=== PATIENT | male | born 1990 | race Native Hawaiian/Other Pacific Islander ===

== ENCOUNTER 2019-07-09 22:39 | Emergency (ER) | payer SELFPAY ==
[2019-07-09 22:55] VITALS: BP 178/105; PULSE 75; RESP 16; TEMP 36.6; O2SAT 96; BMI 43.0
--- NOTE | 2019-07-09 23:00 | XRR_ITS ---
PROCEDURE INFORMATION: Exam: XR Right Hand Exam date and time: 07/09/2019 11:01 PM Age: 28 years old Clinical indication: Injury or trauma; Fall; Initial encounter; Blunt trauma (contusions or hematomas; Hand and finger; Bilateral; Index finger and middle finger and ring finger; Injury date: 07/07/19; Additional info: Right hand/wrist injury TECHNIQUE: Imaging protocol: XR Right hand. Views: 3 or more views. COMPARISON: No relevant prior studies available. FINDINGS: Bones/joints: Normal. Soft tissues: Normal. XR/XR hand RT min 3V* [id number] IMPRESSION: No acute findings.
--- NOTE | 2019-07-09 23:30 | ED_ITS ---
HPI - Extremity Problem General: Chief complaint: Extremity Injury, Upper Stated complaint: right hand/wrist pain Time Seen by Provider: 07/09/19 23:19 History of Present Illness: HPI Narrative: Patient fell last night at a youth event striking both hands against the baseboard on a wall. Right fingers and right wrist have continued to hurt today with mild swelling. MD Complaint: extremity pain and extremity swelling Onset (ago): day(s) (Last night) Pain Consistency: constant Location: right and upper extremity (Hand) Severity scale (1-10): 5 Quality: aching Relieving factors: cold therapy Associated symptoms: Reports rash (Has eczema); Deny chest pain or fever(s) Review of Systems Const: Denies: fever, chills or body aches Eyes: Denies: change in vision or blurry vision ENMT: Denies: throat pain or nasal congestion Card: Denies: chest pain or shortness of breath on exertion Resp: Denies: shortness of breath, productive cough or non-productive cough GI: Denies: abdominal pain, nausea or vomiting : Denies: difficulty urinating Musc: Denies: extremity pain Skin/Breast: Reports: rash (Has eczema) Neuro: Denies: headache Psych: Denies: anxiety or depression Jus/Lymph: Denies: easy bruising PFSH ED PFSH: Statuses (acute, chronic, etc) shown below reflect problem list status as previously entered and may not be historically accurate Social History Smoking and tobacco status: smoker, details unknown Physical Exam Const: COMMON NORMALS: no apparent distress, average body habitus and oriented x3 HENMT: COMMON NORMALS: normocephalic HEAD & SCALP: normal to inspection and normocephalic FACE & SINUS: normal facial exam Eye: COMMON NORMALS: conjunctivae normal GENERAL EYE: normal appearance of both eyes CONJUNCTIVA: Yes conjunctivae normal Neck/C-Spine: COMMON NORMALS: no JVD Chest: COMMONS NORMALS: inspection of chest normal Resp: COMMON NORMALS: normal respiratory effort and clear to auscultation bilaterally AUSCULTATION: clear to auscultation bilaterally Cardio: COMMON NORMALS: no JVD, regular rate and regular rhythm RATE: regular rate RHYTHM: regular rhythm GI: COMMON NORMALS: normal to inspection, nondistended, normoactive bowel sounds Extremity: COMMON NORMALS: normal to inspection and full ROM RIGHT UPPER EXTREMITY: Yes hand & digits (Tenderness to middle and ring finger. Mild swelling tenderness to the wrist. Bilateral are ulnar and radial) Neuro: COMMON NORMALS: oriented x3 Course Vital Signs: Vital signs: Vital Signs Temperature 97.8 F 07/09/19 22:55 Pulse Rate 75 07/09/19 22:55 Respiratory Rate 16 07/09/19 22:55 Blood Pressure 178/105 07/09/19 22:55 Pulse Oximetry 96 07/09/19 22:55 MDM - Extremity (Nontraumatic) Imaging Data^: Xray Ortho: My impression: Right proximal phalange #3 finger, with distal aspect fracture fragment Discharge Plan Discharge Prescriptions: No Action No Known Home Medications RF: 0 Coding Level of Care Code ED Statement Request Clerk for Abbi Bergeron Exam Problem Focused
[2019-07-10 00:12] VITALS: PULSE 83; O2SAT 98
--- NOTE | 2019-07-11 14:48 | DCPLANNER ---
manager non profit had message to schedule a follow up appointment for patient with ortho. manager non profit called the ortho clinic, spoke with Pat, gave clinic patients information. manager non profit was told that patients information would be printed and reviewed. Clinic will call complex case manager and patient with appointment information.
--- NOTE | 2019-07-13 14:16 | DCPLANNER ---
Jenna from ortho called correctional casework specialist and informed correctional casework specialist that patient is follow up with primary care physician. manager ems was told that if patient is still having pain in a couple of weeks, than patient can call the ortho clinic and schedule an appointment.
== END 2019-07-10 00:13 | disposition home or self-care (01) ==
PROVIDERS: Emergency Provider Nurse Practitioner Family; PCP Family Medicine
DX: M79.641 Pain in right hand (principal)
CPT/HCPCS: 73130; 99281

== ENCOUNTER 2019-10-17 22:09 | Emergency (ER) | payer SELFPAY ==
[2019-10-17 22:21] VITALS: BP 146/92; PULSE 90; RESP 20; TEMP 36.8; O2SAT 97; BMI 43.6
[2019-10-17 23:43] LABS: Basophils # 0.1 10^3/uL (0.0-0.1); Eosinophils # 0.5 10^3/uL (0.0-0.8); Eosinophils % 5.1 %; Hematocrit 48.9 % (42.0-52.0); Hemoglobin 15.7 g/dL (11.7-16.6); Lymphocytes # 3.9 10^3/uL (0.8-4.8); Lymphocytes % 40.3 %; Mean Corpuscular HGB Conc 32.1 g/dL (30.0-36.0); Mean Corpuscular Hemoglobin 28.2 pg (28.0-34.0); Mean Corpuscular Volume 87.9 fL (80-94); Mean Platelet Volume 9.3 fL (7.4-10.4); Monocytes # 1.1 10^3/uL (0.2-0.9); Monocytes % 10.8 %; Neutrophils # 4.2 10^3/uL (1.8-7.7); Neutrophils % 42.5 %; Nucleated Red Blood Cells % 0 %; Platelet Count 374 10^3/cmm (130-400); Red Blood Count 5.56 10^6/uL (4.1-5.3); Red Cell Distribution Width 13.3 % (12.1-15.1); White Blood Count 9.8 10^3/uL (4.0-10.0)
[2019-10-17 23:57] LABS: Alanine Aminotransferase 60 U/L (0-41); Albumin Level 4.6 g/dL (3.5-5.2); Alkaline Phosphatase 89 IU/L (40-130); Anion Gap 16.1 (5-19); Aspartate Amino Transferase 25 U/L (0-40); Blood Urea Nitrogen 12 mg/dL (6-20); Carbon Dioxide 29 mmol/L (22-29); Chloride 98 mmol/L (98-107); Globulin 3.9 g/dL (1.3-4.6); Glomerular Filtration Rate 71.1 mL/min (90-130); Glucose 81 mg/dL (65-115); Lipase 32 U/L (13-60); Osmolality Calculated 283 mOsm/kg (285-295); Potassium 4.1 mmol/L (3.5-5.1); Sodium 139 mmol/L (136-145); Total Bilirubin 0.3 mg/dL (0.15-1.2); Total Protein 8.5 g/dL (6.6-8.7)
[2019-10-18 00:06] VITALS: BP 150/88; PULSE 77; RESP 14; O2SAT 98
--- NOTE | 2019-10-18 00:07 | ED_ITS ---
HPI - Abdominal Pain General: Chief Complaint: General Medical Stated Complaint: abd pain Time Seen by Provider: 10/17/19 23:20 Source: patient Mode of arrival: ambulatory Limitations: no limitations History of Present Illness: HPI narrative: Patient is a 29-year-old male who presents to ED today with multiple medical complaints. Patient's main complaint is chronic intermittent upper abdominal pains that he states has been present at least a year . He states in August 2017 he was hospitalized at [facility] in [place] and told he had a possible bowel obstruction however at the end of his discharge was told he did not have an obstruction. Patient states he has not found any worsening factors to his pain. He has not tried anything prescription or [id number] for the pain. He denies nausea, vomiting, diarrhea, constipation. Denies urinary symptoms. No fever/chills. He also complains of intermittent episodes of dizziness and lightheadedness again that have been present intermittently for at least a year . Patient has never sought primary care evaluation as he does not have insurance. MD elicited complaint: abdominal pain Pertinent past history: none Onset (ago): month(s) Pain Consistency: constant and intermittent Location: Other (across upper abdomen ) Radiation: none Migration to: no migration Exacerbating factors: nothing Relieving factors: nothing Associated Symptoms: Denies change in bowel habits, change in stool character, chills, coffee ground emesis, constipation, GI cramping, diarrhea, dysuria, fever(s), heartburn, hematochezia, hematuria, nausea, syncope and vomiting Review of Systems Const: Denies: fever, chills, body aches, fatigue or malaise Eyes: Denies: change in vision, blurry vision, photophobia, floaters or seeing flashes ENMT: Denies: throat pain, enlarged tonsils or painful swallowing Card: Reports: lightheadedness; Denies: chest pain, palpitations, irregular heart rhythm, edema, swelling of feet/ankles, syncope, pre-syncope, shortness of breath on exertion, shortness of breath when lying down, leg pain with exertion or bluish discoloration of hands/feet Resp: Denies: shortness of breath, productive cough, non-productive cough, pain on inspiration, change in phlegm color, coughing up blood or chest congestion GI: Reports: abdominal pain; Denies: nausea, vomiting, coffee grounds in vomit, difficulty swallowing, heartburn/indigestion, feeling full early, diarrhea, constipation, cramping, change in bowel habits, painful bowel movements, rectal swelling, change in stool character, blood in stool, white/light colored stool or fatty stool : Denies: flank pain, difficulty urinating, painful urination, urinary frequency, urinary urgency, urinary hesitancy, nighttime urination, urinary incontinence, blood in urine, testicular pain or scrotal swelling Musc: Denies: neck pain, back pain or joint pain Skin/Breast: Denies: rash Neuro: Reports: dizziness; Denies: headache, numbness in extremities, weakness in extremities, changes in sensation, lack of coordination, difficulty walking, frequent falls or vertigo PFSH ED PFSH: Social History Smoking and tobacco status: light tobacco smoker Physical Exam Const: COMMON NORMALS: no apparent distress, oriented x3, no limitations and alert NUTRITIONAL APPEARANCE: obese HENMT: COMMON NORMALS: normocephalic, head/scalp atraumatic, hearing grossly normal bilaterally, external ears normal, EAC's normal, TM's normal bilaterally and oropharynx normal HEAD & SCALP: normocephalic and atraumatic EXTERNAL EAR: Yes external ears normal EXTERNAL AUDITORY CANAL: EAC's normal TYMPANIC MEMBRANE: TM's normal bilaterally Eye: COMMON NORMALS: PERRL and EOMs intact bilaterally GENERAL EYE: normal appearance of both eyes and other (no nystagmus) PUPIL: Yes PERRL Neck/C-Spine: COMMON NORMALS: full ROM, no lymphadenopathy and no meningeal signs Chest: COMMONS NORMALS: inspection of chest normal and palpation of chest normal Resp: COMMON NORMALS: normal respiratory effort and clear to auscultation bilaterally AUSCULTATION: clear to auscultation bilaterally Cardio: COMMON NORMALS: regular rate and regular rhythm RATE: regular rate RHYTHM: regular rhythm GI: COMMON NORMALS: normal to inspection, nondistended, normoactive bowel sounds, soft to palpation, no hepatosplenomegaly and no masses PALPATION: Yes soft, Yes tender Details: LLQ and Yes no hepatosplenomegaly : COMMON NORMALS: Yes no CVA tenderness BLADDER/KIDNEY EXAM: Yes no CVA tenderness Back/Pelvis: COMMON NORMALS: no CVA tenderness, thoracic and lumbar spine normal to inspection, no thoracic nor lumbar tenderness and thoraco-lumbar ROM normal Extremity: COMMON NORMALS: normal to inspection Neuro: COMMON NORMALS: oriented x3 SENSORIUM/ORIENTATION: Yes alert MENINGEAL SIGNS: Yes no meningeal signs Skin: COMMON NORMALS: no rashes or lesions noted GENERAL SKIN EXAM: no rashes or lesions noted Course Vital Signs: Vital signs: Vital Signs Temperature 98.3 F 10/17/19 22:21 Pulse Rate 79 10/18/19 00:42 Respiratory Rate 16 10/18/19 00:42 Blood Pressure 150/111 10/18/19 00:42 Pulse Oximetry 96 10/18/19 00:42 MDM - Abdominal Pain Lab Data: Labs: Lab Results 10/17/19 10/17/19 10/18/19 Range/Units 23:30 23:30 00:15 WBC 9.8 (4.0-10.0) 10^3/ uL RBC 5.56 H (4.1-5.3) 10^6/u L Hgb 15.7 (11.7-16.6) g/dL Hct 48.9 (42.0-52.0) % MCV 87.9 (80-94) fL MCH 28.2 (28.0-34.0) pg MCHC 32.1 (30.0-36.0) g/dL RDW 13.3 (12.1-15.1) % Plt Count 374 (130-400) 10^3/c mm MPV 9.3 (7.4-10.4) fL Neut % (Auto) 42.5 % Lymph % (Auto) 40.3 % [place] % (Auto) 10.8 % Eos % (Auto) 5.1 % Baso % (Auto) 1.0 % Neut # (Auto) 4.2 (1.8-7.7) 10^3/u L Lymph # (Auto) 3.9 (0.8-4.8) 10^3/u L [place] # (Auto) 1.1 H (0.2-0.9) 10^3/u L Eos # (Auto) 0.5 (0.0-0.8) 10^3/u L Baso # (Auto) 0.1 (0.0-0.1) 10^3/u L Nucleated RBC % (a uto) 0 % Nucleated RBCs # 0.0 /100WBC Sodium 139 (136-145) mmol/L Potassium 4.1 (3.5-5.1) mmol/L Chloride 98 (98-107) mmol/L Carbon Dioxide 29 (22-29) mmol/L Anion Gap 16.1 (5-19) BUN 12 (6-20) mg/dL Creatinine 1.2 (0.7-1.2) mg/dL GFR Calculation 71.1 L (90-130) mL/min Glucose 81 (65-115) mg/dL Calculated Osmolal ity 283 L (285-295) mOsm/k g Calcium 10.0 (8.5-10.5) mg/dL Total Bilirubin 0.3 (0.15-1.2) mg/dL AST 25 (0-40) U/L ALT 60 H (0-41) U/L Alkaline Phosphata se 89 (40-130) IU/L Total Protein 8.5 (6.6-8.7) g/dL Albumin 4.6 (3.5-5.2) g/dL Globulin 3.9 (1.3-4.6) g/dL Lipase 32 (13-60) U/L Urine Color Yellow (Yellow) Urine Appearance Clear (CLEAR) Urine pH 6 (5-7) Ur Specific Gravit y 1.015 (1.005-1.030) Urine Protein Neg (Negative) Urine Glucose (UA) Norm (Normal) Urine Ketones Negative (Negative) Urine Blood Neg (Negative) Urine Nitrate Negative (Negative) Urine Bilirubin Neg (NEGATIVE) Urine Urobilinogen Norm (Negative) mg/dL Ur Leukocyte Brittney ase Negative (Negative) Imaging Data ^: CT Abd/Pel: Radiologist's impression: [address] [id number] [address] Scan Report Signed Patient: Antonio Hayes Unit #: [id number] : 1990 Age/Sex: 29 / M ADM Date: 10/17/19 Loc: ER Room/Bed: Attending Dr: Ordering Provider/Ordering MD: Madelyn Lehman Date of Service: 10/18/19 Procedure(s): CT abdomen pelvis w con* [id number] Accession Number(s): [id number] Report Number: [id number] PROCEDURE INFORMATION: Exam: CT Abdomen And Pelvis With Contrast Exam date and time: 10/18/2019 12:17 AM Age: 29 years old Clinical indication: Abdominal pain; Localized; Upper; Prior surgery; Surgery date: 6+ months; Surgery type: Appy TECHNIQUE: Imaging protocol: Computed tomography of the abdomen and pelvis with intravenous contrast. Sagittal and coronal reformatted images were created and reviewed. Radiation optimization: All CT scans at this facility use at least one of these dose optimization techniques: automated exposure control; mA and/or kV adjustment per patient size (includes targeted exams where dose is matched to clinical indication); or iterative reconstruction. Contrast material: OMNI 300; Contrast volume: 95 ml; Contrast route: IV; COMPARISON: No relevant prior studies available. RADIATION DOSE METRICS: Total DLP: 2180.85 mGy-cm FINDINGS: Heart: Visualized portions of the heart are unremarkable. Lungs: Visualized lungs are clear. Pleural space: No pleural effusion. Liver: Diffuse, mildly decreased attenuation in the liver. Findings are consistent with mild fatty infiltration. Gallbladder and bile ducts: The gallbladder is unremarkable. No biliary ductal dilatation. Pancreas: The pancreas is unremarkable. No pancreatic ductal dilatation. Spleen: The spleen is unremarkable. Small splenule in the left upper quadrant. Adrenals: The right and left adrenal glands are unremarkable. Kidneys and ureters: The right and left kidneys are unremarkable. The right and left ureters are unremarkable. Stomach and bowel: Ingested contents in the stomach. No acute abnormality in the small bowel. No acute abnormality in the colon. Appendix: Appendix not definitely visualized (by history the patient has had a prior appendectomy). No inflammatory changes in the pericecal region. Intraperitoneal space: No free intraperitoneal air. No ascites. No loculated fluid collections to suggest an abscess. Vasculature: No evidence for aortic aneurysm or aortic dissection. Hepatic veins, portal veins, splenic vein, and SMV are patent. Lymph nodes: No lymphadenopathy. Bladder: The bladder is incompletely filled, which can limit evaluation. No focal abnormality in the bladder however. Reproductive: Unremarkable as visualized. Bones/joints: Old, mild compression deformities of T10 and T11. Mild kyphosis of the spine at these levels. Mild degenerative changes in the visualized spine. Soft tissues: Small, fat-containing umbilical hernia. No evidence for strangulation. No acute abnormality in the extra-abdominal soft tissues. CT/CT abdomen pelvis w con* [id number] IMPRESSION: 1. No acute abnormality in the abdomen or pelvis. 2. Mild fatty infiltration of the liver. 3. Small, fat-containing umbilical hernia. No evidence for strangulation. 4. Incidental/nonacute findings are listed in the report. Radiation Dose CTDIVOL = (mGy): DLP = 2180.85 (mGy-cm) Dictated By: Yancy Josue MD Signed By: Yancy Josue MD Signed Date/Time: 10/18/1950 DD/ Discharge Plan Discharge Patient Disposition: Home, Self-Care Clinical Impression: Chronic abdominal pain Condition: Stable Prescriptions: No Action biotin RF: 0 melatonin RF: 0 Discharge Orders: Discharge Order (Routine); Ordered 10/18/19 Ordered By: Madelyn Lehman Patient Instructions: Abdominal Pain (ED) Coding Level of Care Code ED Numerical Control Tool Programmer for Chg Fwd Exam Comprehensive
[2019-10-18] MEDS: iohexol 300 mg/mL 100 mL Btl IV (00:23)
[2019-10-18 00:24] LABS: Add Urine Microscopic? NO
[2019-10-18 00:26] LABS: Bilirubin Urine Neg (NEGATIVE); Blood Urine Neg (Negative); Glucose Urine UA Norm (Normal); Ketones Urine Negative (Negative); Leukocyte Esterase Urine Negative (Negative); Nitrate Urine Negative (Negative); Protein Urine Neg (Negative); Specific Gravity, Urine 1.015 (1.005-1.030); Urine Appearance Clear (CLEAR); Urine Color Yellow (Yellow); pH Urine 6 (5-7)
[2019-10-18 00:27] LABS: Urobilinogen Urine Norm (Negative)
--- NOTE | 2019-10-18 00:30 | PC.NURSE ---
patient in CT
[2019-10-18 00:42] VITALS: BP 150/111; PULSE 79; RESP 16; O2SAT 96
[2019-10-18 02:00] VITALS: BP 142/88; PULSE 77; RESP 16; O2SAT 96
--- NOTE | 2019-10-18 14:12 | DCPLANNER ---
manager business operations had message to speak with patient about getting established with a primary care physician. manager business operations called the phone number [phone], unable to speak with patient or leave a voicemail, the phone was a busy signal.
== END 2019-10-18 02:01 | disposition home or self-care (01) ==
PROVIDERS: Emergency Provider Physician Assistant
DX: G89.29 Other chronic pain (principal); R10.9 Unspecified abdominal pain; F17.210 Nicotine dependence, cigarettes, uncomplicated
CPT/HCPCS: 12345; 74177; 80053; 81003; 83690; 85025; 99282; 99283; Q9967

== ENCOUNTER 2020-03-11 21:13 | Emergency (ER) | payer SELFPAY ==
[2020-03-11 21:28] VITALS: BP 160/110; PULSE 88; RESP 18; TEMP 36.6; O2SAT 98; BMI 44.6
--- NOTE | 2020-03-11 21:42 | W.ED.DENTAL ---
HPI - Dental/Oral General: Chief complaint: Dental/Oral Stated complaint: tooth ache Time Seen by Provider: 03/11/20 21:37 History of Present Illness: HPI Narrative: Patient is a 29-year-old male comes to the ED with dental pain. Symptoms started last 24 hours. He also is having some pain on left side of face. Location of dental pain is tooth #15. He rates his pain a 10 he has not called the dentist yet but says he will give them a call on Thursday. Associated symptoms: Denies fever(s) or odynophagia Review of Systems Const: Denies: fever(s), chills or fatigue Eyes: Denies: change in vision or eye discomfort ENMT: Reports: dental pain; Denies: throat pain, odynophagia, nasal discharge or nasal congestion Card: Denies: chest pain, palpitations, edema, swelling of feet/ankles, dyspnea on exertion or orthopnea Resp: Denies: dyspnea, productive cough or non-productive cough GI: Denies: abdominal pain, nausea, vomiting, diarrhea, constipation or hematochezia : Denies: flank pain, difficulty urinating, dysuria or hematuria Musc: Denies: neck pain, back pain or extremity swelling Skin/Breast: Denies: rash or new lesions Neuro: Denies: headache(s), numbness in extremities or weakness in extremities PFSH ED PFSH: Social History Smoking and tobacco status: light tobacco smoker Physical Exam Const: COMMON NORMALS: patient oriented x3 HENMT: COMMON NORMALS: normocephalic HEAD & SCALP: normocephalic MOUTH: Normal oral and palatal mucosa present TEETH & GINGIVA: Yes caries (tooth #15) and Yes gingiva abnormal edematous (around tooth #15) and diffusely erythematous (around tooth #15) THROAT: posterior oropharynx normal and uvula midline Neck/C-Spine: COMMON NORMALS: supple GENERAL: Yes normal visual inspection Resp: COMMON NORMALS: normal respiratory effort, No retractions, No use of accessory muscles and clear to auscultation bilaterally AUSCULTATION: clear to auscultation bilaterally Cardio: COMMON NORMALS: regular rate, regular rhythm, S1 normal heart sound present, S2 normal heart sound present, No gallops present (Cardio), No clicks present (Cardio), No murmurs present (Cardio) and Peripheral pulses 2+ throughout RATE: regular rate RHYTHM: regular rhythm HEART SOUNDS: S1 normal heart sound present and S2 normal heart sound present PERIPHERAL PULSES: Peripheral pulses 2+ throughout GI: COMMON NORMALS: Normal to inspection, nondistended, normoactive bowel sounds present, Soft to palpation, non-tender and no masses PALPATION: Yes Soft to palpation : COMMON NORMALS: Yes no CVA tenderness BLADDER/KIDNEY EXAM: Yes no CVA tenderness Back/Pelvis: COMMON NORMALS: no CVA tenderness Neuro: COMMON NORMALS: patient oriented x3 and moves all extremities Skin: GENERAL SKIN EXAM: dry skin Course Vital Signs: Vital signs: Vital Signs Temperature 97.9 F 03/11/20 21:28 Pulse Rate 69 03/11/20 22:28 Respiratory Rate 16 03/11/20 22:28 Blood Pressure 160/110 03/11/20 21:28 Pulse Oximetry 94 03/11/20 22:28 MDM - Dental/Oral MDM Narrative: Medical decision making narrative: Patient is a 29-year-old male who comes to the ED with dental pain. Patient was given a prescription for clindamycin and told to contact dentist tomorrow morning to get dental pain addressed. Patient understood and agreed with plan. Discharge Plan Discharge Patient Disposition: Home Clinical Impression: Pain due to dental caries Condition: Stable Prescriptions: New clindamycin HCl 150 mg capsule 300 mg PO QID 7 Days Qty: 56 RF: 0 No Action biotin RF: 0 melatonin RF: 0 Discharge Orders: Discharge Order (Routine); Ordered 03/11/20 Ordered By: Tio Easley Discharge Diet: Regular Discharge Activity: Resume usual activity Patient Instructions: Dental Caries (ED) Activity Restrictions/Additional Instructions: Contact dentist to set up an appointment to get dental pain further evaluated. Take medications as prescribed. Take [id number] Tylenol or ibuprofen for pain. Return to the ER or your medical provider if condition worsens. Please read and understand discharge instructions. If any questions, please ask. Discharge Date/Time: 03/11/20 22:35 Coding Level of Care Code ED Group Dynamics Instructor for Abbi Fwd Exam Comprehensive
[2020-03-11] MEDS: HYDROcodone-acetaminophen 7.5-325 mg Tablet 1 TAB PO (22:21)
[2020-03-11] MEDS: clindamycin 150 mg Capsule 300 MG PO (22:22)
[2020-03-11 22:28] VITALS: PULSE 69; RESP 16; O2SAT 94
== END 2020-03-11 22:35 | disposition home or self-care (01) ==
PROVIDERS: Emergency Provider Physician Assistant
DX: K02.9 Dental caries, unspecified (principal); F17.210 Nicotine dependence, cigarettes, uncomplicated
CPT/HCPCS: 12345; 99281; 99283

== ENCOUNTER 2020-03-13 17:35 | Emergency (ER) | payer SELFPAY ==
--- NOTE | 2020-03-13 17:43 | W.ED.DENTAL ---
HPI - Dental/Oral General: Chief complaint: Dental/Oral Stated complaint: DENTAL PAIN Time Seen by Provider: 03/13/20 17:43 Source: patient Mode of arrival: ambulatory Limitations: no limitations History of Present Illness: HPI Narrative: Patient comes in with left lower dental pain. Patient has swelling and discomfort to the lower molar that is decayed to the gumline. Patient was seen on Thursday evening and started on clindamycin for probable infection. Patient returns today due to continued pain. Review of Systems General: Reports: 10 or more systems reviewed and unremarkable except in HPI and below ENMT: Reports: dental pain PFSH ED PFSH: Social History Smoking and tobacco status: light tobacco smoker Physical Exam Const: COMMON NORMALS: no acute distress and patient oriented x3 GENERAL APPEARANCE: cooperative HENMT: COMMON NORMALS: normocephalic, TM's normal bilaterally and Normal external nose present HEAD & SCALP: normal to inspection and normocephalic NOSE: Normal external nose present TYMPANIC MEMBRANE: TM's normal bilaterally MOUTH: other (Dental decay to #18 molar on the left lower jaw. Posterior pharynx is open without any signs of significant swelling. Mild left lymphadenopathy is noted.) THROAT: posterior oropharynx normal Eye: GENERAL EYE: appearance normal, both eyes and all related structures Neck/C-Spine: COMMON NORMALS: full ROM Chest: COMMONS NORMALS: normal inspection of the chest Resp: COMMON NORMALS: normal respiratory effort EFFORT & INSPECTION: Yes able to speak in complete sentences Cardio: COMMON NORMALS: regular rate and regular rhythm RATE: regular rate RHYTHM: regular rhythm GI: COMMON NORMALS: non-tender Back/Pelvis: COMMON NORMALS: thoracic and lumbar spine normal to inspection Extremity: COMMON NORMALS: normal to inspection Neuro: COMMON NORMALS: patient oriented x3 and moves all extremities Psych: COMMON NORMALS: mental status grossly normal and cooperative Skin: COMMON NORMALS: no rashes or lesions noted GENERAL SKIN EXAM: no rashes or lesions noted Course Vital Signs: Vital signs: Vital Signs Temperature 97.3 F L 03/13/20 17:49 Pulse Rate 103 H 03/13/20 17:49 Respiratory Rate 14 03/13/20 17:49 Blood Pressure 155/100 03/13/20 17:49 Pulse Oximetry 97 09/29/20 17:49 MDM - Dental/Oral MDM Narrative: Medical decision making narrative: Patient comes in today with left lower jaw pain. Patient appears well. Patient appears in mild pain. On exam we note decay to the second molar on the left lower jaw. Significant decay and tooth loss is noted. No significant swelling to the posterior pharynx is noted. Differential diagnosis includes periapical abscess, odontalgia, retropharyngeal abscess. No signs of significant illnesses noted. Patient was treated for pain. Patient will follow-up with dentist for definitive care. Patient has a limit for follow-up due to lack of insurance. Discharge Plan Discharge Patient Disposition: Home Clinical Impression: Pain due to dental caries Condition: Stable Prescriptions: New diclofenac potassium 50 mg tablet 50 mg PO Q8H PRN (Reason: pain) Qty: 10 RF: 0 Lidocaine Viscous 2 % solution 10 ml MUCOUS MEM Q3H PRN (Reason: pain) Qty: 100 RF: 0 No Action clindamycin HCl 150 mg capsule 300 mg PO QID 7 Days Qty: 56 RF: 0 biotin RF: 0 melatonin RF: 0 Discharge Orders: Discharge Order (Routine); Ordered 03/13/20 Ordered By: Mathieu Valentin Discharge Diet: Usual diet Discharge Activity: Increase activity as tolerated Patient Instructions: Toothache (ED) Activity Restrictions/Additional Instructions: Good oral care. Healthy diet and activity. Drink plenty of fluids with medications. Follow-up with primary care for further treatment. Follow-up with dentist for definitive care. Coding Level of Care Code ED Commutator Assembler for Abbi Fwd Exam Comprehensive
[2020-03-13 17:49] VITALS: BP 155/100; PULSE 103; RESP 14; TEMP 36.3; O2SAT 97; BMI 44.6
[2020-03-13] MEDS: dexamethasone 10 mg/mL INJ 8 MG IM (18:01)
[2020-03-13] MEDS: ketorolac 30 mg/mL INJ IM (18:02)
== END 2020-03-13 18:07 | disposition home or self-care (01) ==
PROVIDERS: Emergency Provider Nurse Practitioner Family
DX: K02.9 Dental caries, unspecified (principal); F17.210 Nicotine dependence, cigarettes, uncomplicated
CPT/HCPCS: 12345; 96372; 99281; 99283; J1100; J1885

== ENCOUNTER 2020-03-17 17:13 | Emergency (ER) | payer SELFPAY ==
[2020-03-17 17:25] VITALS: BP 179/118; PULSE 78; RESP 18; TEMP 36.6; O2SAT 98; BMI 44.6
--- NOTE | 2020-03-17 17:40 | ED_ITS ---
HPI - Dental/Oral General: Chief complaint: Dental/Oral Stated complaint: Dental Pain Time Seen by Provider: 03/17/20 17:40 History of Present Illness: HPI Narrative: Patient is a 29-year-old male comes to the ED with dental pain. Patient was seen here for same complaint on March 11 and . Tooth pain is located at tooth #18. he currently has proximately 2 more days left of his clindamycin. He says the past 24 hours he has had increased pain and swelling on left lower jaw. He rates his pain an 8 out of 10. He has been calling around to get into a dentist here locally but has not had any luck. He does have a dentist he thinks some need to get into located in [place] that he will call Thursday. No airway obstructions or problems breathing. Associated symptoms: Denies fever(s) or odynophagia Review of Systems Const: Denies: fever(s), chills or fatigue Eyes: Denies: change in vision or eye discomfort ENMT: Reports: dental pain; Denies: throat pain, odynophagia, nasal discharge or nasal congestion Card: Denies: chest pain, palpitations, edema, swelling of feet/ankles, dyspnea on exertion or orthopnea Resp: Denies: dyspnea, productive cough or non-productive cough GI: Denies: abdominal pain, nausea, vomiting, diarrhea, constipation or hematochezia : Denies: flank pain, difficulty urinating, dysuria or hematuria Musc: Denies: neck pain, back pain or extremity swelling Skin/Breast: Denies: rash or new lesions Neuro: Denies: headache(s), numbness in extremities or weakness in extremities [facility] ED PFSH: Social History Smoking and tobacco status: light tobacco smoker Physical Exam Const: COMMON NORMALS: no acute distress, patient oriented x3 and alert GENERAL APPEARANCE: cooperative and comfortable HENMT: COMMON NORMALS: normocephalic HEAD & SCALP: normocephalic MOUTH: Normal oral and palatal mucosa present TEETH & GINGIVA: Yes caries and Yes g ingiva abnormal edematous (Around tooth #18.) THROAT: posterior oropharynx normal and uvula midline Neck/C-Spine: COMMON NORMALS: supple GENERAL: Yes normal visual inspection Lymph: LYMPHATIC: lymphadenopathy left submandibular single and tender 2 cm Resp: COMMON NORMALS: normal respiratory effort, No retractions, No use of accessory muscles and clear to auscultation bilaterally AUSCULTATION: clear to auscultation bilaterally Cardio: COMMON NORMALS: regular rate, regular rhythm, S1 normal heart sound present, S2 normal heart sound present, No gallops present (Cardio), No clicks present (Cardio), No murmurs present (Cardio) and Peripheral pulses 2+ throughout RATE: regular rate RHYTHM: regular rhythm HEART SOUNDS: S1 normal heart sound present and S2 normal heart sound present PERIPHERAL PULSES: Peripheral pulses 2+ throughout GI: COMMON NORMALS: Normal to inspection, nondistended, normoactive bowel sounds present, Soft to palpation, non-tender and no masses PALPATION: Yes Soft to palpation : COMMON NORMALS: Yes no CVA tenderness BLADDER/KIDNEY EXAM: Yes no CVA tenderness Back/Pelvis: COMMON NORMALS: no CVA tenderness Extremity: COMMON NORMALS: normal to inspection Neuro: COMMON NORMALS: patient oriented x3 and moves all extremities SENSORIUM/ORIENTATION: Yes alert Skin: GENERAL SKIN EXAM: dry skin Course Vital Signs: Vital signs: Vital Signs Temperature 97.8 F 03/17/20 17:25 Pulse Rate 78 03/17/20 17:25 Respiratory Rate 18 03/17/20 17:25 Blood Pressure 179/118 03/17/20 17:25 Pulse Oximetry 98 03/17/20 17:25 MDM - Dental/Oral MDM Narrative: Medical decision making narrative: Patient is a 29-year-old male comes the ED with dental pain. He has been seen here on March 11 and for same complaint. He currently has about 2 days left of his clindamycin. He has a tensional dentist he can see in [place] and he is going to call them on Thursday. I gave patient a prescription for amoxicillin and he can take that after the clindamycin. I also sent him home with some diclofenac for pain. Patient was given IM Toradol and IM Solu-Medrol while here in the ED to help with pain and swelling. Return to ED precautions given. I explained to him the importance of getting set up with a dentist to address problem. Patient understood and agreed with plan. Discharge Plan Discharge Patient Disposition: Home Clinical Impression: Pain due to dental caries Condition: Stable Prescriptions: New amoxicillin 500 mg capsule 500 mg PO TID 10 Days Qty: 30 RF: 0 diclofenac potassium 50 mg tablet 50 mg PO Q8H PRN (Reason: pain) Qty: 15 RF: 0 No Action clindamycin HCl 150 mg capsule 300 mg PO QID 7 Days Qty: 56 RF: 0 diclofenac potassium 50 mg tablet 50 mg PO Q8H PRN (Reason: pain) Qty: 10 RF: 0 Lidocaine Viscous 2 % solution 10 ml MUCOUS MEM Q3H PRN (Reason: pain) Qty: 100 RF: 0 biotin RF: 0 melatonin RF: 0 Discharge Orders: Discharge Order (Routine); Ordered 03/17/20 Ordered By: Tio Easley Discharge Diet: Regular Discharge Activity: Increase activity as tolerated Patient Instructions: Dental Caries (ED) Activity Restrictions/Additional Instructions: Follow-up with Dentist as directed. Take medications as prescribed. Return to the ER or your medical provider if condition worsens. Please read and understand discharge instructions. If any questions, please ask. Discharge Date/Time: 03/17/20 18:23 Coding Level of Care Code ED Artificial Breast Fabricator for Abbi Fwd Exam Comprehensive
[2020-03-17] MEDS: ketorolac 60 mg/2 mL INJ IM (18:18)
== END 2020-03-17 18:23 | disposition home or self-care (01) ==
PROVIDERS: Emergency Provider Physician Assistant
DX: K02.9 Dental caries, unspecified (principal); F17.210 Nicotine dependence, cigarettes, uncomplicated
CPT/HCPCS: 12345; 96372; 99281; 99283; J1885; J2930

== ENCOUNTER 2022-01-24 13:35 | Emergency (ER) | payer SELFPAY ==
[2022-01-24 13:52] VITALS: BP 166/85; PULSE 101; RESP 18; TEMP 36.8; O2SAT 96; BMI 47.5
--- NOTE | 2022-01-24 14:17 | W.ED.DENTAL ---
HPI - Dental/Oral General: Chief complaint: Dental/Oral Stated complaint: left face swelling Time Seen by Provider: 01/24/22 13:57 History of Present Illness: Patient is a 31-year-old male comes to the ED with dental pain. Dental pain started 4 days ago. He rates the pain currently a 9 out of 10. Pain is located in the back bottom right molars. He states he has had problems with this tooth in the past. Over the past 2 to 3 days he started developing some swelling in his right lower jaw as well. He has tried taking ibuprofen and Tylenol and it has not helped the pain. He is currently calling around dental offices to try to get an appointment. Associated symptoms: Denies fever(s) or odynophagia Review of Systems Const: Denies: fever(s), chills or fatigue Eyes: Denies: change in vision or eye discomfort ENMT: Reports: dental pain; Denies: throat pain, odynophagia, nasal discharge or nasal congestion Card: Denies: chest pain, palpitations, edema, swelling of feet/ankles, dyspnea on exertion or orthopnea Resp: Denies: dyspnea, productive cough or non-productive cough GI: Denies: abdominal pain, nausea, vomiting, diarrhea, constipation or hematochezia : Denies: flank pain, difficulty urinating, dysuria or hematuria Musc: Denies: neck pain, back pain or extremity swelling Skin/Breast: Denies: rash or new lesions Neuro: Denies: headache(s), numbness in extremities or weakness in extremities PFS ED PFSH: Medical History No pertinent family history No pertinent past medical history Social History Smoking and tobacco status: light tobacco smoker Physical Exam Const: COMMON NORMALS: patient oriented x3 and alert GENERAL APPEARANCE: cooperative HENMT: COMMON NORMALS: normocephalic HEAD & SCALP: normocephalic FACE & SINUS: edema on the right mandible (Mild swelling over right mandible) MOUTH: Normal oral and palatal mucosa present TEETH & GINGIVA: Yes abnormal tooth and associated gingiva lower right third molar tender and with associated gingival edema and Yes caries THROAT: posterior oropharynx normal and uvula midline Neck/C-Spine: COMMON NORMALS: supple GENERAL: Yes normal visual inspection Resp: COMMON NORMALS: normal respiratory effort, No retractions, No use of accessory muscles and clear to auscultation bilaterally AUSCULTATION: clear to auscultation bilaterally Cardio: COMMON NORMALS: regular rate, regular rhythm, S1 normal heart sound present, S2 normal heart sound present, No gallops present (Cardio), No clicks present (Cardio), No murmurs present (Cardio) and Peripheral pulses 2+ throughout RATE: regular rate RHYTHM: regular rhythm HEART SOUNDS: S1 normal heart sound present and S2 normal heart sound present PERIPHERAL PULSES: Peripheral pulses 2+ throughout GI: COMMON NORMALS: Normal to inspection, nondistended, normoactive bowel sounds present, Soft to palpation, non-tender and no masses PALPATION: Yes Soft to palpation : COMMON NORMALS: Yes no CVA tenderness BLADDER/KIDNEY EXAM: Yes no CVA tenderness Back/Pelvis: COMMON NORMALS: no CVA tenderness Extremity: COMMON NORMALS: normal to inspection Neuro: COMMON NORMALS: patient oriented x3 SENSORIUM/ORIENTATION: Yes alert GAIT: Yes Normal gait present Skin: GENERAL SKIN EXAM: dry skin Course Vital Signs: Vital signs: Vital Signs Temperature 98.2 F 01/24/22 13:52 Pulse Rate 101 H 01/24/22 13:52 Respiratory Rate 18 01/24/22 13:52 Blood Pressure 166/85 01/24/22 13:52 Pulse Oximetry 96 01/24/22 13:52 [facility] - Dental/Oral Medical Decision Making Patient is a 31-year-old male comes to the ED with dental pain. Vitals are stable and patient appears nontoxic in no acute distress. He has some mild right lower mandible facial swelling. Dental caries present and he has tenderness over his back bottom right third molar along with associated gingival edema. Patient diagnosed with dental infection and was discharged home with a prescription for Celebrex for pain, clindamycin and lidocaine viscus. Told to follow-up with dentist as soon as possible to have dental pain addressed. Return ED precautions given. Patient understood and agreed with plan. Discharge Plan Discharge Patient Disposition: Home Clinical Impression: Dental infection Condition: Stable Prescriptions: New clindamycin HCl 150 mg capsule 300 mg PO Q6H 7 Days Qty: 56 0RF Celebrex 100 mg capsule 100 mg PO BID PRN (Reason: pain) Qty: 20 0RF Lidocaine Viscous 2 % solution 1 applic mucous membrane Q8H PRN (Reason: pain) Qty: 100 0RF No Action diclofenac potassium 50 mg tablet 50 mg PO Q8H PRN (Reason: pain) Qty: 10 0RF Lidocaine Viscous 2 % solution 10 ml MUCOUS MEM Q3H PRN (Reason: pain) Qty: 100 0RF Rx Instructions: hold in area of pain until relief diclofenac potassium 50 mg tablet 50 mg PO Q8H PRN (Reason: pain) Qty: 15 0RF biotin melatonin Discharge Orders: Discharge ED (Routine); Ordered 01/24/22 Ordered By: Tio Easley Discharge Diet: Regular Discharge Activity: Increase activity as tolerated Patient Instructions: Dental Caries (Cavities), Toothache (ED) Activity Restrictions/Additional Instructions: Follow-up with dentist as soon as possible to have dental pain further evaluated and treated. Take medications as prescribed. Return to the ER or your medical provider if condition worsens. Please read and understand discharge instructions. Thank you for choosing [facility] for your healthcare needs today. Please realize this is an emergency room and that we are providing you with a medical screening exam and this may not be complete and all inclusive of all the testing and or work up that you may need to determine your ailment or severity of your illness. It is very important that you follow up as instructed or that you return to the Emergency Department should you have concerns or if your condition changes or worsens in any way. Coding Level of Care Code ED Cementer Hand for Abbi Bergeron Exam Comprehensive
[2022-01-24] MEDS: HYDROcodone-acetaminophen 7.5-325 mg Tablet 1 TAB PO (14:41)
[2022-01-24] MEDS: clindamycin 150 mg Capsule 300 MG PO (14:41)
== END 2022-01-24 14:46 | disposition home or self-care (01) ==
PROVIDERS: Emergency Provider Physician Assistant
DX: K04.7 Periapical abscess without sinus (principal); F17.210 Nicotine dependence, cigarettes, uncomplicated
CPT/HCPCS: 99283

== ENCOUNTER 2022-01-27 23:10 | Emergency (ER) | payer SELFPAY ==
[2022-01-27 23:33] VITALS: BP 150/93; PULSE 101; RESP 16; TEMP 37; O2SAT 96; BMI 46.2
--- NOTE | 2022-01-27 23:41 | W.ED.DENTAL ---
HPI - Dental/Oral General: Chief complaint: Dental/Oral Stated complaint: tooth pain Time Seen by Provider: 01/27/22 23:36 History of Present Illness: 31-year-old male patient comes in today with increased pain and discomfort to the right lower jaw. Patient does have a dental infection and has recently been placed on clindamycin and Celebrex with recommendations to follow-up with dentist. Patient reports some improvement but had some significant pain tonight that he was not able to control with the medication. Patient reports that the Celebrex seems to help but only lasts about 8 hours. Patient appears nontoxic. Patient appears in mild to moderate pain. Associated symptoms: Denies fever(s) Review of Systems Const: Denies: fever(s) ENMT: Reports: dental pain PFSH ED PFSH: Medical History No pertinent family history No pertinent past medical history Social History Smoking and tobacco status: light tobacco smoker Physical Exam Const: COMMON NORMALS: alert HENMT: COMMON NORMALS: normocephalic HEAD & SCALP: normocephalic TEETH & GINGIVA: Yes fair dentition Neck/C-Spine: COMMON NORMALS: full ROM and no lymphadenopathy Resp: COMMON NORMALS: normal respiratory effort and clear to auscultation bilaterally AUSCULTATION: clear to auscultation bilaterally Cardio: COMMON NORMALS: regular rate and regular rhythm RATE: regular rate RHYTHM: regular rhythm Extremity: COMMON NORMALS: normal to inspection Neuro: SENSORIUM/ORIENTATION: Yes alert Skin: COMMON NORMALS: turgor normal GENERAL SKIN EXAM: turgor normal Course Vital Signs: Vital signs: Vital Signs Temperature 98.6 F 01/27/22 23:33 Pulse Rate 101 H 01/27/22 23:33 Respiratory Rate 16 01/27/22 23:33 Blood Pressure 150/93 01/27/22 23:33 Pulse Oximetry 96 01/27/22 23:33 Oxygen Delivery Me thod 01/27/22 23:33 MDM - Dental/Oral Medical Decision Making 31-year-old male patient comes in today with complaints of pain to the right lower molar. Patient was recently started on clindamycin does report some improvement but tonight the pain was worse, and the Celebrex did not seem to last as long. Differential diagnosis includes dental abscess, odontalgia, malingering. Patient does have a resolving periapical abscess to the right lower jaw molar. He has poor dentition. I will write for another 7 days of clindamycin and wrote for a few hydrocodone tablets for his severe pain. Patient reported understanding of care plan and need for follow-up with dentist for further evaluation. Discharge Plan Discharge Patient Disposition: Home Clinical Impression: Dental infection Condition: Stable Prescriptions: New hydrocodone-acetaminophen 5-325 mg tablet 1 tab PO Q6H PRN (Reason: pain (scale score 7-10)) Qty: 7 0RF Continued clindamycin HCl 150 mg capsule 300 mg PO Q6H 7 Days Qty: 56 0RF Changed Celebrex 100 mg capsule 100 mg PO Q8H PRN (Reason: Pain) Qty: 20 0RF No Action diclofenac potassium 50 mg tablet 50 mg PO Q8H PRN (Reason: pain) Qty: 10 0RF Lidocaine Viscous 2 % solution 10 ml MUCOUS MEM Q3H PRN (Reason: pain) Qty: 100 0RF Rx Instructions: hold in area of pain until relief diclofenac potassium 50 mg tablet 50 mg PO Q8H PRN (Reason: pain) Qty: 15 0RF biotin melatonin Lidocaine Viscous 2 % solution 1 applic mucous membrane Q8H PRN (Reason: pain) Qty: 100 0RF Discharge Orders: Discharge ED (Routine); Ordered 01/27/22 Ordered By: Mathieu Valentin Discharge Diet: Usual diet Discharge Activity: Increase activity as tolerated Patient Instructions: Dental Abscess (ED), Opioid Safety Activity Restrictions/Additional Instructions: Continue with routine medications as directed. Drink plenty of water and fluids. Use ice or heat for further pain relief. Continue with antibiotics as directed 4 times a day if symptoms have not completely cleared at the end of your 7-day treatment continue with the prescription for another 7 days. Use acetaminophen for further pain relief. Increase celecoxib 100 mg to 3 times a day for pain and inflammation. Use hydrocodone for severe pain. Follow-up with dentist for definitive care. Coding Level of Care Code ED Health Program Specialist for Abbi Bergeron
[2022-01-27] MEDS: HYDROcodone-acetaminophen 5-325 mg Tablet 1 TAB PO (23:57)
== END 2022-01-27 23:58 | disposition home or self-care (01) ==
PROVIDERS: Emergency Provider Nurse Practitioner Family
DX: K04.7 Periapical abscess without sinus (principal); F17.210 Nicotine dependence, cigarettes, uncomplicated
CPT/HCPCS: 99284

== ENCOUNTER 2025-01-02 22:07 | Emergency (ER) | payer MEDICAID, SELFPAY ==
[2025-01-02 22:09] VITALS: BP 155/104; PULSE 87; RESP 16; TEMP 36.8; O2SAT 98
--- OUTSIDE RECORDS SUMMARY | 2025-01-02 22:11 | XMS_ITS | Encounter Summary ---
Author Organization [facility] Address [address] [place] [address] Care Team Providers Care Manager Paid Name Role Phone Unavailable Primary Care Provider Unavailabl e Encounter Details Date Type Department Care Team (Latest Contact Info) Description 07/24/1999 Outpatient Historical [facility] Chalo Alvarado, Moi Gibbons MD [address] [place] [phone] Acute sinusitis, unspecified (Primary Dx) Social History Tobacco Use Types Packs/Day Years Used Date Smoking Tobacco: Never Assessed Sex and Gender Information Value Date Recorded Sex Assigned at Not on file 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
--- OUTSIDE RECORDS SUMMARY | 2025-01-02 22:11 | XMS_ITS | Clinical Summary ---
Author Organization [facility] Address [address] [facility] Attn: Epic Prelude ADT JIMMY JOHNS [id number] Care Team Providers Care Co Founder Name Role Phone Unavailable Primary Care Provider Unavailabl e Immunizations Immunization Administration Dates Next Due (M-M-R II/PRIORIX)(12 MO UP) MEASLES, MUMPS AND RUBELLA VIRUS VACCINE, 0.5 ML IM/SUBCUT 01/07/1994,11/23/1991 (TDVAX)(7 YRS UP) TETANUS AN D DIPHTHERIA TOXOIDS, ADSORBED (2 LF OF TETANUS TOXOID AND 2 LF OF DIPHTHERIA TOXOID), 0.5ML (PF), IM 02/09/2004 Dt Dtp Dtap Vaccine 01/07/1994, 2,02/15/1991,1990,1989 HIB, Unspecified Formulation 02/15/1991 Hepatitis B Vaccine 02/12/2001,11/25/2000,1999 IPV/OPV 01/07/1994, 1,06/24/1990,1989 Social History Tobacco Use Types Packs/Day Years Used Date Smoking Tobacco: Never Assessed Sex and Gender Information Value Date Recorded Sex Assigned at Not on file 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
--- OUTSIDE RECORDS SUMMARY | 2025-01-02 22:11 | XMS_ITS | Encounter Summary ---
Author Organization [facility] Address [address] [place] [address] Care Team Providers Care Seismology Technical Officer Name Role Phone Unavailable Primary Care Provider Unavailabl e Encounter Details Date Type Department Care Team (Latest Contact Info) Description 09/23/1999 Outpatient Historical [facility] Chalo Alvarado, Moi Gibbons MD [address] [place] [phone] Acute sinusitis, unspecified (Primary Dx) Social History Tobacco Use Types Packs/Day Years Used Date Smoking Tobacco: Never Assessed Sex and Gender Information Value Date Recorded Sex Assigned at Not on file Legal Sex Male 4:52 AM ORACLE 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
--- NOTE | 2025-01-02 22:54 | ED_ITS ---
HPI - Dental/Oral General: Chief complaint: Dental/Oral Stated complaint: tooth ache Time Seen by Provider: 01/02/25 22:14 Source: patient Mode of arrival: ambulatory Limitations: no limitations History of Present Illness: 34-year-old male states that he has been having left lower dental pain at tooth 22. States pains been sharp pain going on for 4 days states he saw urgent care today they did prescribe clindamycin but he has not had any pain meds. He denies any worse or improving factors. Associated symptoms: Denies fever(s) Related Data Home Medications ?Medication ?Instructions ?Recorded ?Confirmed biotin 10/17/19 04/24/23 melatonin 10/17/19 04/24/23 Previous Rx's ?Medication ?Instructions ?Recorded diclofenac potassium 50 mg tablet 50 mg PO Q8H PRN imelda n #10 tabs 03/13/20 lidocaine HCl 2 % mucosal solution 10 ml mucous membra ne Q3H PRN pain 03/13/20 (Lidocaine Viscous) #100 mL diclofenac potassium 50 mg tablet 50 mg PO Q8H PRN imelda n #15 tabs 03/17/20 lidocaine HCl 2 % mucosal solution 1 applic mucous mem brane Q8H PRN 01/24/22 (Lidocaine Viscous) pain #100 mL celecoxib 100 mg capsule (Celebrex) 100 mg PO Q8H PRN Pain #20 caps 01/27/22 hydrocodone 5 mg-acetaminophen 325 1 tab PO Q6H PRN pa in #14 tabs 01/02/25 mg tablet Allergies Allergy/AdvReac Type Severity Reaction Status Date / Time clavulanic acid (From Allergy ALGY-Rash Verified 01/02/25 22:12 Augmentin) Review of Systems Const: Denies: fever(s), chills, body aches or change in appetite ENMT: Reports: dental pain; Denies: throat pain Card: Denies: chest pain Resp: Denies: dyspnea GI: Denies: abdominal pain, nausea, vomiting or diarrhea Musc: Denies: neck pain or back pain Skin/Breast: Denies: rash Neuro: Denies: headache(s) PFS ED PFSH: Medical History (Updated 01/02/25 @ 22:56 by Neetu Moran MD) No pertinent past medical history No pertinent family history Social History (Reviewed 04/24/23 @ 10:47 by Emili Salvador Smoking and tobacco/nicotine status: light tobacco/nicotine user Physical Exam Const: COMMON NORMALS: no acute distress, patient oriented x3 and healthy appearing HENMT: COMMON NORMALS: normocephalic and atraumatic HEAD & SCALP: normocephalic and atraumatic OTHER: Poor dentition tenderness to tooth #22 no abscess no trismus Eye: COMMON NORMALS: conjunctivae normal CONJUNCTIVA: Yes conjunctivae normal Neck/C-Spine: COMMON NORMALS: full ROM and supple Chest: COMMONS NORMALS: normal inspection of the chest Resp: COMMON NORMALS: normal respiratory effort Cardio: COMMON NORMALS: regular rate RATE: regular rate Extremity: COMMON NORMALS: normal to inspection and full ROM Neuro: COMMON NORMALS: patient oriented x3, moves all extremities and no focal motor deficits Psych: COMMON NORMALS: mental status grossly normal, Normal thought process present and cooperative THOUGHT PROCESS: Normal thought process present Skin: COMMON NORMALS: no rashes or lesions noted and no wounds GENERAL SKIN EXAM: no rashes or lesions noted Course Vital Signs: Vital signs: Vital Signs Temperature 98.2 F 01/02/25 22:09 Pulse Rate 87 01/02/25 22:09 Respiratory Rate 16 01/02/25 22:09 Blood Pressure 155/104 01/02/25 22:09 Pulse Oximetry 98 01/02/25 22:09 [facility] - Dental/Oral Medical Decision Making Patient presents for dental pain he is continue his antibiotics we will give him a dose of pain medicine here follow-up with dentist return if worsening No radiology studies performed this visit Discharge Plan Discharge Patient Disposition: Home Clinical Impression: Toothache, Dental caries Condition: Stable Prescriptions: New hydrocodone-acetaminophen 5-325 mg tablet 1 tab PO Q6H PRN (Reason: pain) Qty: 14 0RF Discontinued hydrocodone-acetaminophen 5-325 mg tablet 1 tab PO Q6H PRN (Reason: pain (scale score 7-10)) Qty: 7 0RF No Action diclofenac potassium 50 mg tablet 50 mg PO Q8H PRN (Reason: pain) Qty: 10 0RF Lidocaine Viscous 2 % solution 10 ml MUCOUS MEM Q3H PRN (Reason: pain) Qty: 100 0RF Rx Instructions: hold in area of pain until relief diclofenac potassium 50 mg tablet 50 mg PO Q8H PRN (Reason: pain) Qty: 15 0RF biotin melatonin Celebrex 100 mg capsule 100 mg PO Q8H PRN (Reason: Pain) Qty: 20 0RF Lidocaine Viscous 2 % solution 1 applic mucous membrane Q8H PRN (Reason: pain) Qty: 100 0RF Discharge Orders: Discharge ED (Routine); Ordered 01/02/25 Ordered By: Neetu Moran Referrals: Nighat Rodrigez PA [Primary Care Provider, Physicians Lung Puller] Discharge Diet: Advance as tolerated Discharge Activity: Resume usual activity Patient Instructions: Toothache (ED) Print Language: Wallisian Coding Level of Care Code ED Wire Straightener for Abbi Bergeron
[2025-01-02] MEDS: HYDROcodone-acetaminophen 7.5-325 mg Tablet 1 TAB PO (23:04)
== END 2025-01-02 23:05 | disposition home or self-care (01) ==
PROVIDERS: Emergency Provider Emergency Medicine; PCP Physician Assistant
DX: K08.89 Other specified disorders of teeth and supporting structures (principal); K02.9 Dental caries, unspecified
CPT/HCPCS: 99283; J9999